=== PATIENT | male | born 1955 | race Caucasian/White ===

== ENCOUNTER → 2017-11-02 | Outpatient (CLI) | payer OTHER ==
[~2017-11-02] MED LIST: ACCUNEB SO1.25 MG/1 INH; ADULT LOW DOSE81 MG PO; ALDACTONE25 MG PO; ASPIRIN EC81 M1 PO; CARVEDILOL6.25 MG PO; COREG6.25 MG PO; HYDRALAZINE 5050 M1 PO; HYDROCODON-ACE1 EAC7 PO; IBUPROFEN 400400 M1 PO; IBUPROFEN 800800 M1 PO; IMDUR 30 MG TAB30 M1 PO; IMDUR 30 MG TAB30 MG PO; IMDUR120 MG PO; LEVOTHYROXINE0.05 MG PO; LIPITOR40 MG PO; LISINOPRIL20 MG PO; LISINOPRIL40 MG PO; NICOTINE TRANSD14 M1 TD; NORCO 5-325 TA1 EACH PO; PLAVIX 75 MG TA75 M1 PO; SIMVASTATIN10 MG PO; SPIRONOLACTONE25 M1 PO; SYMBICORT160 MCG/4. INH; SYNTHROID50 MCG PO; VICODIN 5-5001 EACH PO; VITAMIN D1000 UNI1 PO; VITAMIN D5000 UNIT PO; ZESTRIL20 MG PO; ZOFRAN 4 MG ORAL4 MG PO
== END ==
LOC: RAD 12:58
DX: R06.02 Shortness of breath (principal)